=== PATIENT | female | born 1945 | race Caucasian/White ===

== ENCOUNTER 2016-12-14 15:37 | Emergency (ER) | payer MEDICARE, OTHER ==
[~2016-12-14] VITALS: Ht 160 cm; Wt 75.0 kg
[~2016-12-14 15:37] MED LIST: ALBU8.5H3 IH; ASPI-535 PO; BIMA2.5D BOTH EYES; MECL-77 PO; METH50TA4 PO; OMEP20CA16 PO; VALS1TAB76 PO
[2016-12-14 15:40] VITALS: Ht 160 cm; Wt 75.0 kg
[2016-12-14] MEDS ORDERED: HYDROCODONE/APAP (5/325) TAB PO ONE (16:00)
[2016-12-14] MEDS ORDERED: ONDANSETRON (ODT) 4 MG TAB ODT STA (16:00)
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
[2016-12-14] MEDS ORDERED: TRAM50TA2 PO (17:34)
[2016-12-14] MEDS ORDERED: ACET500C5 PO (17:34)
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
== END 2016-12-14 18:13 | disposition home or self-care (01) ==
LOC: FTE 15:37
DX: S29.9XXA Unspecified injury of thorax, initial encounter (principal); I10 Essential (primary) hypertension; V49.50XA Passenger injured in collision with unspecified motor vehicles in traffic accident, initial encounter; Z79.82 Long term (current) use of aspirin
CPT/HCPCS: 71100; 93005

== ENCOUNTER 2016-12-29 19:09 | Emergency (ER) | payer MEDICARE, OTHER ==
[~2016-12-29] VITALS: Ht 160 cm; Wt 80.0 kg
[~2016-12-29 19:09] MED LIST changes: +ACET500C5 PO; +TRAM50TA2 PO
[2016-12-29 19:13] VITALS: Ht 160 cm; Wt 80.0 kg
[2016-12-29] MEDS ORDERED: morphine 4 MG/ML VIAL IV STA (22:15)
[2016-12-29] MEDS ORDERED: ONDANSETRON 4 MG INJ IV STA (22:15)
[2016-12-29] MEDS ORDERED: DORZ10DR BOTH EYES (22:34)
[2016-12-29] MEDS ORDERED: IBUP-1542 PO (22:34)
[2016-12-29] MEDS ORDERED: METH50TA6 PO (22:34)
[2016-12-29] MEDS ORDERED: DEXL60CA2 PO (22:38)
[2016-12-29] MEDS ORDERED: DORZ10DR6 BOTH EYES (22:38)
[2016-12-29] MEDS ORDERED: LOSA1TAB21 PO (22:38)
[2016-12-29] MEDS ORDERED: BUDE6HFA INHALATION (22:38)
[2016-12-29] MEDS ORDERED: LATA2.5D2 BOTH EYES (22:38)
[2016-12-29 22:46] LABS: ADD SCAN DIFF NO; BASOPHIL # 0.1 10^3/ul (0.0-0.1); BASOPHILS % 1.1 % (0.0-2.0); EOSINOPHILS # 0.4 10^3/ul (0.0-0.5); EOSINOPHILS % 6.1 % (0.0-7.0); HEMATOCRIT 33.6 % (37.0-47.0); HEMOGLOBIN 10.2 g/dl (12.0-16.0); LYMPHOCYTES # 2.6 10^3/ul (0.8-2.9); LYMPHOCYTES % 42.1 % (15.0-51.0); MEAN CORPUSCULAR HEMOGLOBIN 28.7 pg (29.0-33.0); MEAN CORPUSCULAR HGB CONC 30.4 g/dl (32.0-37.0); MEAN CORPUSCULAR VOLUME 94.6 fl (82.0-101.0); MEAN PLATELET VOLUME 9.7 fl (7.4-10.4); MONOCYTE # 0.5 10^3/ul (0.3-0.9); MONOCYTES % 7.7 % (0.0-11.0); NEUTROPHIL # 2.7 10^3/ul (1.6-7.5); NEUTROPHILS % 42.7 % (39.0-77.0); PLATELET COUNT 345 10^3/UL (140-415); RED BLOOD COUNT 3.55 10^6/ul (4.20-5.40); RED CELL DISTRIBUTION WIDTH 12.8 % (11.5-14.5); WHITE BLOOD COUNT 6.3 10^3/ul (4.8-10.8)
[2016-12-29 23:03] LABS: ALANINE AMINOTRANSFERASE 20 IU/L (13-69); ALBUMIN 4.1 g/dl (3.3-4.9); ALBUMIN/GLOBULIN RATIO 1.28; ALKALINE PHOSPHATASE 91 IU/L (42-121); ANION GAP 20 (8-16); ASPARTATE AMINO TRANSFERASE 17 IU/L (15-46); BILIRUBIN,INDIRECT 0.1 mg/dl (0-1.1); BILIRUBIN,TOTAL 0.1 mg/dl (0.2-1.3); BLOOD UREA NITROGEN 30 mg/dl (7-20); CARBON DIOXIDE 25 mmol/L (21-31); CHLORIDE 103 mmol/L (97-110); CREATININE 1.28 mg/dl (0.44-1.00); GLUCOSE 105 mg/dl (70-220); POTASSIUM 4.3 mmol/L (3.5-5.1); SODIUM 144 mmol/L (135-144); TOTAL PROTEIN 7.3 g/dl (6.1-8.1)
[2016-12-29 23:03] LABS: INR 0.91; PARTIAL THROMBOPLASTIN TIME 25.4 Sec (25.0-35.0); PROTIME 12.3 Sec (12.2-14.2)
[2016-12-29 23:15] LABS: B-TYPE NATRIURETIC PEPTIDE 815 PG/ML (0-125)
[2016-12-29 23:19] LABS: TROPONIN-I < 0.012 ng/ml (0.00-0.12)
--- NOTE | 2016-12-29 23:31 | RADRPT ---
PROCEDURE: XR Chest. CLINICAL INDICATION: Chest pain. TECHNIQUE: Single frontal view. COMPARISON: 04/06/2007. FINDINGS: The lungs are clear. The heart size is normal. There is calcification in the aorta consistent with atherosclerosis. There is no pleural effusion. There is no pneumothorax. IMPRESSION: 1. Atherosclerosis. 2. Otherwise normal chest x-ray. RPTAT: QQ .Guero Vallejo MD, MD Date Time Electronically viewed and signed by .Guero Vallejo MD, MD on 12/29/2016 23:31 .R/
[2016-12-30] MEDS ORDERED: traMADol 50 MG TAB PO ONE
--- NOTE | 2016-12-30 00:49 | RADRPT ---
PROCEDURE: CT Chest without contrast. CLINICAL INDICATION: Chest pain. TECHNIQUE: CT scan of the chest was performed on a multi-detector high-resolution CT scanner. Co ntiguous axial images were obtained from the lung apices to the upper abdomen without intravenous co ntrast. Coronal and sagittal reformatted images were also obtained. Images were reviewed on the [employer] workstation. One or more of the following dose reduction techniques were used: - Automated exposure control. - Adjustment of the mA and/or kV according to patient size. - Use of iterative reconstruction technique. Exam CTD/vol = 13.05 mGy. Total exam DLP = 474.44 mGy-cm. COMPARISON: 04/09/2013. FINDINGS: The visualized thyroid gland is unremarkable. There are no enlarged axillary lymph nodes. There is an anterior mediastinal lymph node measuring 1.4 x 1.4 cm. There are no enlarged hilar lymph nodes ; however, study limited by lack of intravenous contrast. The heart is normal size. There is no pe ricardial thickening or effusion. The aorta is of normal caliber with mild scattered atherosclerotic calcifications. There is no parenchymal nodule or consolidation. There is no pleural effusion. The central tracheo bronchial tree is within normal limits. There is no pneumothorax. There is no evidence of acute fracture. The sternum is intact. Limited evaluation of the upper abd omen demonstrates prior cholecystectomy. There is a small hyperdense lesion within the upper pole o f the left kidney measuring 9 x 6 mm. IMPRESSION: Prominent anterior mediastinal lymph node measuring 1.4 x 1.4 cm. Mild vascular calcifications reflective of atherosclerosis. Status post cholecystectomy. Small hyperdense lesion within the upper pole of the left kidney could represent a hemorrhagic cyst. Otherwise unremarkable noncontrast CT of the chest. .Elian Curtis MD, MD Date Time Electronically viewed and signed by .Elian Curtis MD, MD on 12/30/2016 00:49 .T/
[2016-12-30] MEDS ORDERED: HYDR-902 PO (01:49)
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
== END 2016-12-30 02:03 | disposition home or self-care (01) ==
LOC: E/R 19:09
DX: R07.89 Other chest pain (principal); I10 Essential (primary) hypertension; Z79.82 Long term (current) use of aspirin
CPT/HCPCS: 36415; 71010; 71250; 80053; 83880; 84484; 85025; 85610; 85730; 93005; 96374; 96375; 99285; J2270; J2405

== ENCOUNTER 2017-08-28 16:58 | Emergency (ER) | END 2017-08-28 21:36 | disposition home or self-care (01) ==